=== PATIENT | female | born 1935 | race Caucasian/White ===

== ENCOUNTER 2016-08-26 01:54 | Observation (INO) | payer MEDICARE, BC ==
[2016-08-26] VITALS (10 sets, daily range): BP systolic 119–195; BP diastolic 63–114; PULSE 63–89; RESP 16–20; TEMP 97.4–98.3; O2SAT 94–98
[2016-08-26] MEDS ORDERED: ERGO1CAP10 PO (02:09)
--- NOTE | 2016-08-26 02:20 | PD ---
HPI Chief Complaint: Chest Pain Time Seen by Provider: 02:20 Travel History International Travel<30 days: No Contact w/Intl Traveler<30days: No Traveled to known affect area: No History of Present Illness HPI 80-year-old female presents to the emergency department by private transportation the care of her spouse for evaluation of retrosternal and left- sided chest pain. Patient reports just prior to arrival to the emergency department she was awakened from sleep with left-sided chest pain and discomfort in the left upper extremity. Patient also experienced some nausea. There is been no sweats no vomiting no shortness of breath and no back or right upper extremity or abdominal pain however patient did note some referred pain to her left jaw. No prior history of CAD or chest pain. Patient denies personal history of hypertension diabetes or tobaccoism. Recently she has been identified to have some mild elevated cholesterol but is taking no medication and is managed dietary and lifestyle changes. Patient has family history of heart disease in her mother who at age 92 and her brother who at age 65. Patient denies other concerns or complaints. Patient denies any abdominal pain and no epigastric pain. Patient denies any recent long distance travel protracted bedrest her surgical procedure denies personal history of clotting disorder. Patient does not describe the chest pain as pleuritic. Patient reports she did take 2 325 mg aspirin prior to arrival to the emergency department. [facility] Past Medical History Narrative Medical Diet controlled hyperlipidemia, tonsillectomy, left leg vein removal; no tobacco use no alcohol use; family history CADnot premature onset; nursing notes reviewed Medical other: Yes (VIT D DEFF) Tetanus Vaccination: < 5 Years Influenza Vaccination: Yes Menopausal: Yes : 3 Para: 3 Miscarriage: 0 Past Surgical History Tonsillectomy: Yes Other Surgery: Yes (LT LEG VEIN REMOVAL) Social History Alcohol Use: No Tobacco Use: No Substance Use: No Allergies-Medications (Allergen,Severity, Reaction): Coded Allergies: Codeine (Verified Allergy, Severe, Somnolence, 08/26/16) Iodine (Verified Allergy, Severe, Anaphylaxis, 08/26/16) Shellfish (Verified Allergy, Severe, Anaphylaxis, 08/26/16) Motrin (Verified Allergy, Unknown, 08/26/16) Reported Meds & Prescriptions Reported Meds & Active Scripts Active Reported Vitamin D (Ergocalciferol) 50,000 Unit Cap 50,000 Units PO Q7D Review of Systems Except as stated in HPI: all other systems reviewed are Neg General / Constitutional: No: Fever HENT: No: Congestion Cardiovascular: Positive: Chest Pain or Discomfort Respiratory: No: Shortness of Breath Gastrointestinal: Positive: Nausea, No: Abdominal Pain Genitourinary: No: Flank Pain Musculoskeletal: No: Myalgias, Arthralgias Skin: No Rash Neurologic: No: Weakness Psychiatric: No: Anxiety Hematologic/Lymphatic: No: Lymph Node Enlargement Physical Exam Narrative GENERAL: Well-developed well-nourished female in no acute distress no respiratory distress SKIN: Warm and dry. HEAD: Atraumatic. Normocephalic. EYES: Pupils equal and round. No scleral icterus. No injection or drainage. ENT: No nasal bleeding or discharge. Mucous membranes pink and moist. NECK: Trachea midline. No JVD. CARDIOVASCULAR: Regular rate and rhythm. RESPIRATORY: No accessory muscle use. Clear to auscultation. Breath sounds equal bilaterally. GASTROINTESTINAL: Abdomen soft, non-tender, nondistended. Hepatic and splenic margins not palpable. MUSCULOSKELETAL: Extremities without clubbing, cyanosis, or edema. No obvious deformities. NEUROLOGICAL: Awake and alert. No obvious cranial nerve deficits. Motor grossly within normal limits. Five out of 5 muscle strength in the arms and legs. Normal speech. PSYCHIATRIC: Appropriate mood and affect; insight and judgment normal. Data Data Last Documented VS Vital Signs Date Time Temp Pulse Resp B/P Pulse Ox O2 Delivery O2 Flow Rate FiO2 08/26/16 02:30 78 144/70 08/26/16 02:15 16 08/26/16 01:55 98.0 98 Orders Electrocardiogram (08/26/16 02:10) Complete Blood Count With Diff (08/26/16 02:10) Ckmb (Isoenzyme) Profile (08/26/16 02:10) Troponin I (08/26/16 02:10) Chest, Single Ap (08/26/16 02:10) Iv Access Insert/Monitor (08/26/16 02:10) Ecg Monitoring (08/26/16 02:10) Oxygen Administration (08/26/16 02:10) Oximetry (08/26/16 02:10) Comprehensive Metabolic Panel (08/26/16 02:10) Magnesium (Mg) (08/26/16 02:16) Prothrombin Time / Inr (Pt) (08/26/16 02:16) Act Partial Throm Time (Ptt) (08/26/16 02:16) Nitroglycerin Sl (Nitrostat Sl) (08/26/16 02:30) Sodium Chlor 0.9% 1000 Ml Inj (Ns 1000 M (08/26/16 02:30) Bilateral Bp Monitoring (08/26/16 02:16) Ondansetron Inj (Zofran Inj) (08/26/16 02:30) Ondansetron Inj (Zofran Inj) (08/26/16 02:21) Admit Order (Ed Use Only) (08/26/16 ) ^ Saline Lock (08/26/16 03:17) Resp Oxygen Manas C Titrat 1-4 L (08/26/16 ) ^ Notify Dr: Other (08/26/16 03:17) Sodium Chloride 0.9% Flush (Ns Flush) (08/26/16 09:00) Labs Laboratory Tests Test 08/26/16 02:10 White Blood Count 9.3 TH/MM3 Red Blood Count 4.43 MIL/MM3 Hemoglobin 13.3 GM/DL Hematocrit 39.7 % Mean Corpuscular Volume 89.5 FL Mean Corpuscular Hemoglobin 29.9 PG Mean Corpuscular Hemoglobin 33.4 % Concent Red Cell Distribution Width 13.7 % Platelet Count 232 TH/MM3 Mean Platelet Volume 9.6 FL Neutrophils (%) (Auto) 46.2 % Lymphocytes (%) (Auto) 39.0 % Monocytes (%) (Auto) 11.1 % Eosinophils (%) (Auto) 2.1 % Basophils (%) (Auto) 1.6 % Neutrophils # (Auto) 4.3 TH/MM3 Lymphocytes # (Auto) 3.6 TH/MM3 Monocytes # (Auto) 1.0 TH/MM3 Eosinophils # (Auto) 0.2 TH/MM3 Basophils # (Auto) 0.1 TH/MM3 CBC Comment DIFF FINAL Differential Comment Sodium Level 140 MEQ/L Potassium Level 4.0 MEQ/L Chloride Level 104 MEQ/L Carbon Dioxide Level 26.9 MEQ/L Anion Gap 9 MEQ/L Blood Urea Nitrogen 24 MG/DL Creatinine 0.82 MG/DL Estimat Glomerular Filtration 67 ML/MIN Rate Random Glucose 96 MG/DL Calcium Level 8.9 MG/DL Total Bilirubin 0.2 MG/DL Aspartate Amino Transf 21 U/L (AST/SGOT) Alanine Aminotransferase 26 U/L (ALT/SGPT) Alkaline Phosphatase 69 U/L Total Creatine Kinase 82 U/L Troponin I LESS THAN 0.02 NG/ML Total Protein 7.1 GM/DL Albumin 3.8 GM/DL Exceptions Acute Myocardial Infarction ASA Not Given on Arrival: Already taken by patient MDM Medical Decision Making Medical Screen Exam Complete: Yes Emergency Medical Condition: Yes Medical Record Reviewed: Yes Interpretation(s) EKG: Normal sinus rhythm rate [address] elevation or injury pattern change noted CBC & BMP Diagram 08/26/16 02:10 Last Impressions Chest X-Ray 08/26/16 0210 Signed Impressions: Service Date/Time: Friday, August 26, 2016 02:46 - CONCLUSION: No acute disease. Conor Duncan Jr., MD Differential Diagnosis Chest pain, ACS, DC, esophageal spasm, aortic dissection, PE, pneumonia, musculoskeletal pain Narrative Course Patient placed on ekg monitor IV access obtained specimens collected and sent for resulting; patient had taken 2 325 mg aspirin prior to arrival to the emergency department therefore proceeded with several nitroglycerin and maintenance IV fluids After sublingual nitroglycerin patient is pain-free also received Zofran 4 mg and nausea has resolved Lab values found to be in normal range and specifically cardiac enzymes are not elevated EKG reveals no acute ST elevation or injury pattern; patient will be admitted to chest pain center per protocol Physician Communication Physician Communication Plan observation admission to chest pain center per protocol Diagnosis Primary Impression: Chest pain Admitting Information Admitting Physician Requests: Observation Bela Mora MD Aug 26, 2016 02:20
[2016-08-26] MEDS ORDERED: ONDANSETRON HCL 4 MG/2 ML VIAL ONE (02:21)
[2016-08-26 02:26] LABS: AUTOMATED NEUTROPHIL # 4.3 TH/MM3 (1.8-7.7); BASOPHIL # 0.1 TH/MM3 (0-0.2); BASOPHIL % 1.6 % (0.0-2.0); EOSINOPHIL # 0.2 TH/MM3 (0-0.4); EOSINOPHIL % 2.1 % (0.0-4.0); HEMATOCRIT 39.7 % (35.0-46.0); HEMO FLAGS DIFF FINAL; LYMPHOCYTE # 3.6 TH/MM3 (1.0-4.8); MEAN CELL VOLUME 89.5 FL (80.0-100.0); MEAN CORPUSCULAR HEMOGLOBIN 29.9 PG (27.0-34.0); MEAN CORPUSCULAR HGB CONC 33.4 % (32.0-36.0); MONO % 11.1 % (0.0-8.0); NEUT % 46.2 % (16.0-70.0); PLATELET COUNT 232 TH/MM3 (150-450); RED BLOOD COUNT 4.43 MIL/MM3 (4.00-5.30); RED CELL DISTRIBUTION WIDTH 13.7 % (11.6-17.2); WHITE BLOOD COUNT 9.3 TH/MM3 (4.0-11.0)
[2016-08-26] MEDS: SODIUM CHLOR 0.9% 1000 ML INJ 1,000 ML IV SCH ×2 (02:27→12:34)
[2016-08-26] MEDS: NITROGLYCERIN 0.4 MG SL 25 TABS/BTL SL SCH ×3 (02:28→02:40)
[2016-08-26] MEDS ORDERED: ONDANSETRON HCL 4 MG/2 ML VIAL IV PUSH ONE (02:30)
--- NOTE | 2016-08-26 02:54 | RADRPT ---
EXAM DATE/TIME: 08/26/2016 02:46 [facility] COMPARISON: No previous studies available for comparison. INDICATIONS : Chest pain. MEDICAL HISTORY : None. SURGICAL HISTORY : None. ENCOUNTER: Initial ACUITY: 1 day PAIN SCORE: 7/10 LOCATION: Bilateral chest FINDINGS: A single view of the chest demonstrates the lungs to be symmetrically aerated without evidence of mas s, infiltrate or effusion. The cardiomediastinal contours are unremarkable. Osseous structures are intact. CONCLUSION: No acute disease. Conor Duncan Jr., MD on August 26, 2016 at 2:52 Board Certified Radiologist. This report was verified electronically.
[2016-08-26 03:03] LABS: ALKALINE PHOSPHATASE 69 U/L (45-117); ALT (GPT) 26 U/L (10-53); ANION GAP 9 MEQ/L (5-15); AST (GOT) 21 U/L (15-37); BICARBONATE 26.9 MEQ/L (21.0-32.0); BLOOD UREA NITROGEN 24 MG/DL (7-18); CHLORIDE 104 MEQ/L (98-107); GLOMERULAR FILTRATION RATE 67 ML/MIN (>89); SODIUM (NA) 140 MEQ/L (136-145); TOTAL BILIRUBIN ADULT 0.2 MG/DL (0.2-1.0)
[2016-08-26 03:04] LABS: CREATINE KINASE 82 U/L (26-192)
[2016-08-26] MEDS ORDERED: NITROGLYCERIN 0.4 MG SL 25 TABS/BTL SL PRN (03:30)
[2016-08-26] MEDS ORDERED: ACETAMINOPHEN 500 MG CPLT PO PRN (03:30)
[2016-08-26] MEDS ORDERED: ONDANSETRON HCL 4 MG/2 ML VIAL IV PRN (03:30)
[2016-08-26] MEDS ORDERED: SODIUM CHLORIDE 0.9% FLUSH 10 ML FLUSH PRN (03:30)
[2016-08-26] MEDS ORDERED: SODIUM CHLORIDE 0.9% FLUSH 10 ML FLUSH IVF PRN (03:30)
[2016-08-26 03:39] LABS: APTT (PATIENT) 25.2 SEC (24.3-30.1); INTERNATIONAL NORMALIZED RATIO 0.9 RATIO
[2016-08-26 06:04] LABS: CREATINE KINASE 57 U/L (26-192)
[2016-08-26 09:00] LABS: CREATINE KINASE 55 U/L (26-192)
[2016-08-26] MEDS ORDERED: ASPIRIN 325 MG TAB PO SCH (09:00)
[2016-08-26] MEDS ORDERED: SODIUM CHLORIDE 0.9% FLUSH 10 ML FLUSH IV FLUSH SCH ×2 (09:00)
[2016-08-26] MEDS ORDERED: PANTOPRAZOLE SOD 40 MG DELAYED RELEASE TAB PO SCH (09:00)
--- NOTE | 2016-08-26 10:28 | HHI.HP ---
HPI Primary Care Physician Sera Sharpe MD Chief Complaint Chest pressure History of Present Illness 80-year-old female with no significant medical history presents to the emergency room with an onset of chest pressure at 10:30 PM. Characterized as "elephant sitting on my chest." Described as "not a deep pain." Location left anterior chest, radiation to her left arm and left jaw. Also experienced bilateral numbness and tingling on fingertips. Left arm described as burning. Duration 2 hours. Severity difficult for patient to gauge. Associated symptoms included nausea. No vomiting, diaphoresis, or shortness of breath. Deep breathing did not make pressure better or worse. No known precipitating factors. Relieving factors none. Provided one nitroglycerin in the ER. And prior to arrival to 2 baby aspirin. Never had chest pain/pressure before. States "I have never been sick and I became anxious about chest pressure." drove her to ER. Review of Systems General: No fatigue,weakness, fever, chills, recent illness, or change in appetite. Has been in her general state of health. HEENT: No CHENG, no vision changes, no nasal congestion or drainage, no dysphasia CV: As stated above. No current chest pain or pressure. No palpitations, intermittent leg pain, dizziness RESP: No SOB, cough, wheeze, or recent URI GI: Nausea improved. No vomiting, bowel changes, diarrhea, constipation, pain, distention, melena, blood in the stool. No unintentional weight gain or weight loss : No dysuria, urgency, frequency EXT: No lower leg edema, no paraesthesias MS: No discomfort or change in ROM NEURO: No change in memory, dizziness, difficulty with balance, LOC, motor/ sensory deficits, ambulates independently PSYCH: No anxiety or depression SKIN: No rashes, no concerning lesions Past Family Social History Allergies: Coded Allergies: Codeine (Verified Allergy, Severe, Somnolence, 08/26/16) Iodine (Verified Allergy, Severe, Anaphylaxis, 08/26/16) Shellfish (Verified Allergy, Severe, Anaphylaxis, 08/26/16) Motrin (Verified Allergy, Unknown, 08/26/16) Past Medical History Vitamin D deficiency Past Surgical History None Reported Medications Reported Meds & Active Scripts Active Reported Vitamin D (Ergocalciferol) 50,000 Unit Cap 50,000 Units PO Q7D Active Ordered Medications Current Medications Medications (Trade) Dose Ordered Sig/Ze Route Start Time Stop Time Status Last Admin (NS 1000 ml Inj) 1,000 ml @ 100 mls/hr Q10H IV 08/26/16 02:30 08/26/16 02:27 (Tylenol) 500 mg Q4H PRN PO 08/26/16 03:30 (Zofran Inj) 4 mg Q6H PRN IV 08/26/16 03:30 (Protonix) 40 mg DAILY PO 08/26/16 09:00 08/26/16 08:31 (Nitrostat Sl) 0.4 mg Q5M PRN SL 08/26/16 03:30 (Aspirin) 325 mg DAILY PO 08/26/16 09:00 08/26/16 08:31 Family History Noncontributory for early onset cardiovascular disease. Both. Skeletal age 82. Father at cancer, mother from heart disease. Brother at age 65 from heart disease. Social History . Retired. Lifelong nonsmoker. Denies any alcohol or illegal drug use. No known hypertension or diabetes. Recently told by her primary care provider she has mild high cholesterol and encouraged dietary modifications at this time. Not prescribed medication and will follow-up in 6 months with PCP. Past cardiac testing No past cardiac testing or heart catheterizations. 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 Physical Exam Vital Signs Vital Signs Date Time Temp Pulse Resp B/P Pulse Ox O2 Delivery O2 Flow Rate FiO2 08/26/16 08:09 98.0 63 20 131/71 95 08/26/16 05:37 98.3 68 20 119/63 97 08/26/16 03:30 69 16 139/65 94 Nasal Cannula 2 08/26/16 03:29 97 08/26/16 02:30 78 144/70 08/26/16 02:15 82 16 179/114 08/26/16 02:04 77 08/26/16 01:55 98.0 82 16 195/92 98 Physical Exam GENERAL: Alert WN, WD, NAD, pleasant, female. HEAD: NC, AT EYES: Sclera clear, conjunctiva without injection, pupils equal and round NECK: Supple, no masses, trachea midline CV: RRR, without murmur, rub, gallop, no JVD, S1-S2 no S3-S4. No carotid or femoral bruits RESP: Clear lungs throughout bilateral, no crackles, wheeze, rhonchi, symmetrical chest rise, nonlabored, able to speak in full sentences ABD: Soft, NT, ND, no masses, positive bowel tones BACK: No CVAT, no scoliosis EXT: Pulses +24, no dependent edema MS: Normal tone 4 extremities, nontender, no obvious deformities, full range of motion NEURO: CN II through CN XII grossly intact, motor strength 5/5, gait WNL PSYCH: A+O 3, pleasant affect, appropriate speech, appropriate mood and affect , insight and judgment SKIN: Normal turgor, normal texture, no lesions, no rashes, brisk cap refill, even hair distribution Laboratory Laboratory Tests Test 08/26/16 08/26/16 08/26/16 02:10 04:50 08:07 White Blood Count 9.3 Red Blood Count 4.43 Hemoglobin 13.3 Hematocrit 39.7 Mean Corpuscular Volume 89.5 Mean Corpuscular Hemoglobin 29.9 Mean Corpuscular Hemoglobin 33.4 Concent Red Cell Distribution Width 13.7 Platelet Count 232 Mean Platelet Volume 9.6 Neutrophils (%) (Auto) 46.2 Lymphocytes (%) (Auto) 39.0 Monocytes (%) (Auto) 11.1 Eosinophils (%) (Auto) 2.1 Basophils (%) (Auto) 1.6 Neutrophils # (Auto) 4.3 Lymphocytes # (Auto) 3.6 Monocytes # (Auto) 1.0 Eosinophils # (Auto) 0.2 Basophils # (Auto) 0.1 CBC Comment DIFF FINAL Differential Comment Prothrombin Time 10.0 Prothromb Time International 0.9 Ratio Activated Partial 25.2 Thromboplast Time Sodium Level 140 Potassium Level 4.0 Chloride Level 104 Carbon Dioxide Level 26.9 Anion Gap 9 Blood Urea Nitrogen 24 Creatinine 0.82 Estimat Glomerular Filtration 67 Rate Random Glucose 96 Calcium Level 8.9 Magnesium Level 2.2 Total Bilirubin 0.2 Aspartate Amino Transf 21 (AST/SGOT) Alanine Aminotransferase 26 (ALT/SGPT) Alkaline Phosphatase 69 Total Creatine Kinase 82 57 55 Troponin I LESS THAN 0.02 LESS THAN 0.02 LESS THAN 0.02 Total Protein 7.1 Albumin 3.8 Result Diagram: 08/26/1620908/26/16209 Imaging Last Impressions Chest X-Ray 08/26/16209 Signed Impressions: Service Date/Time: Friday, August 26, 2016 02:46 - CONCLUSION: No acute disease. Conor Duncan Jr., MD Course EKGs 3 EKGs show normal sinus rhythm with normal axis, no ST or T-segment changes. Assessment and Plan Assessment and Plan #1 Chest painadmitted to chest pain center. Ruled out with 3 sets of EKGs, cardiac enzymes, and monitored throughout evening. Will be seen and evaluated by Dr. Benjy Bennett. Will complete a chemical stress test as she may be experiencing new onset unstable angina. Further disposition to follow. She is agreeable to plan of care Neisha South Aug 26, 2016 10:28
[2016-08-26] MEDS ORDERED: REGADENOSON INJ 0.4 MG/5 ML SYR ONE ×2 (10:51→11:09)
--- NOTE | 2016-08-26 12:43 | RADRPT ---
EXAM DATE/TIME: 08/26/2016 10:46 [facility] COMPARISON: No previous studies available for comparison. INDICATIONS : Left sided chest pain for one day. Angina. DOSE: 25.6 mCi Tc99m Myoview at stress. 8.6 mCi Tc99m Myoview at rest. 0.4 mg Lexiscan STRESS SYMPTOMS: Dizziness. EJECTION FRACTION: 67% MEDICAL HISTORY : None SURGICAL HISTORY : Left leg vein removal. ENCOUNTER: Initial ACUITY: 1 day PAIN SCALE: 4/10 LOCATION: Left chest TECHNIQUE: The patient underwent pharmacologic stress with infusion of prescribed dose. Continuous ECG tracing was monitored during stress. Gated SPECT imaging was performed after stress and conventional SPECT i maging was performed at rest. The examination was performed on a SPECT/CT scanner, both attenuation and non-corrected datasets were reviewed. FINDINGS: DISTRIBUTION: The maximum perfused segment at stress is in the anterolateral wall. PERFUSION STUDY: The pattern of perfusion at stress is within normal limits. GATED STUDY: There is intact wall motion and thickening without hypokinetic or dyskinetic segments. CONCLUSION: 1. No reversible perfusion defect to suggest stress-induced myocardial ischemia identified. RISK CATEGORY: Low (<1% Annual Mortality Rate) Rambo Serrano MD on August 26, 2016 at 12:41 Board Certified Radiologist. This report was verified electronically.
--- NOTE | 2016-08-26 13:03 | HHI.DCPOC ---
Discharge Care Plan Diagnosis: (1) Atypical chest pain (2) GERD (gastroesophageal reflux disease) Goals to Promote Your Health * To prevent worsening of your condition and complications * To maintain your health at the optimal level Directions to Meet Your Goals Take your medications as prescribed Follow your dietary instruction Follow activity as directed Keep your appointments as scheduled Take your immunizations and boosters as scheduled If your symptoms worsen call your PCP, if no PCP go to Urgent Care Center or Emergency Room Smoking is Dangerous to Your Health. Avoid second hand smoke Call the 24-hour hour crisis hotline for domestic abuse at Neisha South Aug 26, 2016 13:03
[2016-08-26] MEDS ORDERED: PROT40TA PO (13:34)
--- NOTE | 2016-08-26 15:49 | EKG ---
Date Performed: 08/26/2016 Time Performed: 02:05:29 PTAGE: 80 years EKG: Sinus rhythm NORMAL ECG NO PREVIOUS TRACING DOCTOR: Toño Jama Interpretating Date/Time 08/26/2016 15:47:16
--- NOTE | 2016-08-26 16:03 | EKG ---
Date Performed: 08/26/2016 Time Performed: 04:53:56 PTAGE: 80 years EKG: Sinus rhythm LOW QRS VOLTAGE IN PRECORDIAL LEADS Since previous tracing, no significant change noted BORDERLINE E CG PREVIOUS TRACING : 08/26/2016 02.05 DOCTOR: Toño Jama Interpretating Date/Time 08/26/2016 16:02:02
--- NOTE | 2016-08-26 16:05 | EKG ---
Date Performed: 08/26/2016 Time Performed: 08:28:19 PTAGE: 80 years EKG: Sinus rhythm WITH OCCASIONAL SUPRAVENTRICULAR PREMATURE COMPLEXES Since previous tracing, no significant change n oted BORDERLINE ECG PREVIOUS TRACING : 08/26/2016 04.53 DOCTOR: Toño Jama Interpretating Date/Time 08/26/2016 16:04:03
--- NOTE | 2016-08-26 16:10 | TR ---
Date Performed: 08/26/2016 Time Performed: 11:20:11 DOCTOR: Benjy Bennett DRUG LIST: CLINICAL HISTORY: ANGINA REASON FOR TEST: Angina REASON FOR ENDING: OBSERVATION: CONCLUSION: Lexiscan stress test was performed under standard four minute protocol. Radionuclid e was injected one minute prior to ending the test. No electrocardiographic abormalities were present to suggest ischemia. Nuclear imaging and interpretation are pending. COMMENTS:
== END 2016-08-26 17:48 | disposition home or self-care (01) ==
LOC: NEPC 01:54 → NEDA 03:21 → NEPFCDU 05:17
PROVIDERS: ADMIT Internal Medicine Interventional Cardiology; ATTEND Internal Medicine Interventional Cardiology
DX: R07.89 Other chest pain (principal); E78.5 Hyperlipidemia, unspecified; E55.9 Vitamin D deficiency, unspecified; Z82.49 Family history of ischemic heart disease and other diseases of the circulatory system; Z88.8 Allergy status to other drugs, medicaments and biological substances; Z91.013 Allergy to seafood; Z88.5 Allergy status to narcotic agent
CPT/HCPCS: 71010; 78452; 80053; 82550; 83690; 83735; 84484; 85025; 85610; 85730; 93005; 93017; 96361; 96374; A9502; G0378; J2405; J2785; J7030

== ENCOUNTER → 2016-10-13 | Day surgery (SDC) | payer MEDICARE, BC ==
--- NOTE | 2016-10-05 17:24 | MH ---
cc: KARLI WEINBERG DATE OF ADMISSION: 10/13/2016 PREOPERATIVE DIAGNOSIS: Left breast cancer ATTENDING PHYSICIAN: Karli Weinberg MD. HISTORY OF PRESENT ILLNESS: The patient is a 80-year-old female now with a newly diagnosed left breast invasive ductal carcinoma. This was initially noted on a screening mammogram August 02, 2016 at [facility]. A diagnostic left breast mammogram and ultrasound on August 30 demonstrated an 8 mm density which was confirmed with ultrasound at twelve o'clock 10 cm from the nipple as a 5 x 6 x 5 mm hypoechoic well-defined nodule which was BI-RADS 4. Ultrasound-guided core biopsy on September 06 demonstrated an invasive well-differentiated ductal carcinoma. She now presents for definitive surgical therapy. PAST MEDICAL HISTORY: Include breast cancer. PAST SURGICAL HISTORY: Varicose vein stripping in 2003. CURRENT MEDICATIONS: 1. Vitamin D 50,000 units weekly. 2. An omega-3 fatty acid. 3. A magnesium supplement. ALLERGIES: She is allergic to: 1. SHELLFISH, which is associated with an anaphylactic reaction. 2. MOTRIN is associated with nausea and a headache. 3. CODEINE causes syncope. 4. SULFA is associated with an anaphylactic reaction. FAMILY HISTORY: Family history is noncontributory. REPRODUCTIVE HISTORY: 3, para 3. Menarche age 12. First child age 21. Menopause age 54. She does not take hormone replacement therapy. REVIEW OF SYSTEMS: A twelve point review of systems was otherwise noncontributory. PHYSICAL EXAMINATION: HEIGHT: She is 5 feet 4. WEIGHT: 155 pounds. BMI: 26.6. VITAL SIGNS: Blood pressure was 137/91, temperature 97, heart rate 88, respirations 16. HEAD, EYES, EARS, NOSE, THROAT: Unremarkable. NECK: The neck was supple with no thyromegaly or adenopathy. LUNGS: Clear throughout. CARDIAC: Normal S1 and S2 with no murmurs, rubs or gallops. BREASTS: Breast exam revealed fibrocystic changes and no palpable breast masses. ABDOMEN: Abdomen soft and nontender with normal bowel sounds. The remainder of her exam was unremarkable. IMPRESSION: Ms. Howard has clinical stage I left breast cancer and is a good candidate for breast conservation with needle localized lumpectomy, sentinel lymph node biopsy, and radiation. I will send her for evaluation of possible intraoperative radiation approach. MD CRISTIAN Erwin/EVGENY /4:59 PM 5:10 PM
[~2016-10-13] MED LIST: BUPIVACAINE HCL PF 0.5% 10 ML VIAL ONE; ERGO1CAP10 PO; ISOSULFAN BLUE 50 MG/5 ML VIAL SQ ONE; LACTATED RINGER'S 1,000 ML BAG IV ONE; LACTATED RINGER'S 1000 ML INJ 1,000 ML ONE; MIDAZOLAM HCL 2 MG/2 ML VIAL ONE; MORPHINE SULFATE 4 MG/ML INJ ONE; ONDANSETRON HCL 4 MG/2 ML VIAL IV PUSH ONE; PROPOFOL 200 MG/20 ML AMP IV ONE; PROT40TA PO; SODIUM CHLORIDE 0.9% INJ 10 ML ONE; ceFAZolin 2 GM PREMIX 50 ML ONE
--- NOTE | 2016-10-13 15:08 | TN ---
cc: KARLI WEINBERG DATE OF SURGERY: 10/13/2016. PRINCIPAL DIAGNOSIS: Left breast cancer, clinical stage I. PROCEDURE PERFORMED: Left breast needle-localized lumpectomy and left axillary sentinel lymph node biopsy. SURGEON: Karli Weinberg MD. ANESTHESIA: General via LMA device. INDICATIONS FOR THE PROCEDURE: The patient is a 80-year-old female with a recently diagnosed clinical stage I left breast cancer which is approximately 5 mm in size and well differentiated. She has opted for breast conservation and now presents for the procedure. FINDINGS AT SURGERY: Specimen mammogram did demonstrate an intact wire and the biopsy clip was within the excised tissue. Two sentinel lymph nodes were removed. Lymph node #1 had a count of 1272, and was not blue, and lymph node #2 had a count of 91, and was not blue. TouchPrep analysis was not performed. DESCRIPTION OF THE PROCEDURE IN DETAIL: After informed consent was obtained and site verification was performed, the patient was brought to the radiology suite where she underwent needle localization of her prior left breast biopsy site at eleven o'clock, 4 cm from the nipple. She also underwent peritumoral radionuclide injection and was then brought to the major operating room. She underwent general anesthesia via an LMA device and a single dose of IV Ancef was given. Sequential compression hose were placed and 2 mL of half-strength Lymphazurin were injected in the subareolar left breast with a 5-minute massage. An incision was anesthetized at the inferior aspect of the left axillary hairline and both sharp and electrocautery dissection were performed until the clavipectoral fascia was divided and the level I axilla was entered. Two mid level I palpable lymph nodes were identified and circumferentially dissected free from surrounding structures using the harmonic scalpel. Two lymph nodes did have a significant radioactive count as noted and these were sent as sentinel lymph nodes #1 and #2. Some adjacent palpably enlarged lymph nodes were also individually excised using circumferential harmonic scalpel dissection but these few nodes had no count and were sent as a permanent axillary specimen. Hemostasis was easily obtained in the axilla and attention was then turned to the left breast where a periareolar skin incision was anesthetized with 0.5% Marcaine plain. Both sharp and electrocautery dissection were performed until the wire entry point through the skin was identified and secured with a hemostat. The wire was cut off at the skin with pin cutters and a 2-0 silk transfixion suture was placed at the wire entry point into the breast tissue. Electrocautery dissection was then performed circumferentially around the wire and the specimen was oriented with two sutures anteriorly, one short suture superiorly, and one long suture laterally. Inspection of the specimen did demonstrate that the medial and superior margins appeared somewhat close and each of these was sharply re-excised with a stitch on the new margin and sent as permanent specimens. Hemostasis was easily obtained in the axillary and breast incision using electrocautery and the wound was closed using an interrupted 3-0 Vicryl subcutaneous suture and a 4-0 Monocryl subcuticular suture. Steri-Strips and a sterile dressing were applied. All sponge and needle counts were correct at the conclusion of the case. The patient was extubated and brought to the recovery room in good condition. MD CRISTIAN Erwin/EVGENY /2:50 PM /2:59 PM
== END | disposition home or self-care (01) ==
LOC: ESDC 08:32
PROVIDERS: ATTEND Surgery
DX: C50.912 Malignant neoplasm of unspecified site of left female breast (principal)
CPT/HCPCS: 00400; 01610; 19125; 38525; 38792; 88307; J0690; J2250; J2270; J2405; J3010; J7120; Q9968; 88305